=== PATIENT | male | born 1980 | race Hispanic/Latino ===

== ENCOUNTER 2018-12-27 18:36 | Emergency (ER) | payer OTHER, SELFPAY ==
[2018-12-27] MEDS ORDERED: ALBUTEROL 2.5 MG/3 ML NEB SOL ONE (19:39)
--- NOTE | 2018-12-27 19:41 | RAD REPORT ---
EXAM DESCRIPTION: Danay Keene (2 Views)12/27/2018 7:12 pm CLINICAL HISTORY: Cough COMPARISON: 2015 FINDINGS: The lungs appear clear of acute infiltrate. The heart is normal size IMPRESSION: No acute abnormalities displayed
--- NOTE | 2018-12-27 21:13 | EDPHYS ---
Physician Documentation [facility] Name: Alec Ladd Age: 38 yrs Sex: Male : 1980 Arrival Date: 12/27/2018 Time: 18:39 Bed 6 Private MD: ED Physician Jaylen Cloud HPI: 12/27 19:35 This 38 yrs old Male presents to ER via Ambulatory with complaints of Chest snw Tightness, Breathing Difficulty. 19:35 The patient or guardian reports cough, difficulty taking a deep breath. Onset: The snw symptoms/episode began/occurred 2 day(s) ago, and became persistent. Associated signs and symptoms: Pertinent positives: chest pain, with cough, tightness. Severity of symptoms: At their worst the symptoms were moderate. The patient has not experienced similar symptoms in the past. It is unknown whether or not the patient has recently seen a physician. Historical: - Allergies: 18:53 No Known Allergies; iw - Home Meds: 18:53 None [Active]; iw - PMHx: 18:53 None; iw - PSHx: 18:53 clavicle; iw - Immunization history:: Adult Immunizations not up to date. - Social history:: Smoking status: Patient/guardian denies using tobacco, the patient reports quitting approximately 3 years ago. - Ebola Screening: : Patient negative for fever greater than or equal to 101.5 degrees Fahrenheit, and additional compatible Ebola Virus Disease symptoms Patient denies exposure to infectious person Patient denies travel to an Ebola-affected area in the 21 days before illness onset No symptoms or risks identified at this time. ROS: 19:33 Constitutional: Negative for fever, chills, and weight loss, Eyes: Negative for injury, snw pain, redness, and discharge, ENT: Negative for injury, pain, and discharge, Neck: Negative for injury, pain, and swelling, Abdomen/GI: Negative for abdominal pain, nausea, vomiting, diarrhea, and constipation, Back: Negative for injury and pain, : Negative for injury, bleeding, discharge, and swelling, MS/Extremity: Negative for injury and deformity, Skin: Negative for injury, rash, and discoloration, Neuro: Negative for headache, weakness, numbness, tingling, and seizure. 19:33 Cardiovascular: Positive for chest pain, of the central chest. 19:33 Respiratory: Positive for mild cough, feels he cannot take a full breath. Exam: 18:55 ECG was reviewed by the Attending Physician. snw 19:33 Constitutional: This is a well developed, well nourished patient who is awake, alert, snw and in no acute distress. Head/Face: Normocephalic, atraumatic. Eyes: Pupils equal round and reactive to light, extra-ocular motions intact. Lids and lashes normal. Conjunctiva and sclera are non-icteric and not injected. Cornea within normal limits. Periorbital areas with no swelling, redness, or edema. ENT: Nares patent. No nasal discharge, no septal abnormalities noted. Tympanic membranes are normal and external auditory canals are clear. Oropharynx with no redness, swelling, or masses, exudates, or evidence of obstruction, uvula midline. Mucous membranes moist. Neck: Trachea midline, no thyromegaly or masses palpated, and no cervical lymphadenopathy. Supple, full range of motion without nuchal rigidity, or vertebral point tenderness. No Meningismus. Abdomen/GI: Soft, non-tender, with normal bowel sounds. No distension or tympany. No guarding or rebound. No evidence of tenderness throughout. Back: No spinal tenderness. No costovertebral tenderness. Full range of motion. Skin: Warm, dry with normal turgor. Normal color with no rashes, no lesions, and no evidence of cellulitis. MS/ Extremity: Pulses equal, no cyanosis. Neurovascular intact. Full, normal range of motion. Neuro: Awake and alert, GCS 15, oriented to person, place, time, and situation. Cranial nerves II-XII grossly intact. Motor strength 5/5 in all extremities. Sensory grossly intact. Cerebellar exam normal. Normal gait. Psych: Awake, alert, with orientation to person, place and time. Behavior, mood, and affect are within normal limits. 19:33 Chest/axilla: Inspection: normal, Palpation: is normal, Axilla: are normal. 19:33 Cardiovascular: Rate: normal, Rhythm: regular, Pulses: no pulse deficits are appreciated. 19:33 Respiratory: the patient does not display signs of respiratory distress, Respirations: normal, Breath sounds: are clear throughout. Vital Signs: 18:53 BP 152 / 67; Pulse 80; Resp 16 S; Temp 98.3(TE); Pulse Ox 100% on R/A; Weight 95.25 kg; iw Height 5 ft. 9 in. (175.26 cm); Pain 0/10; 19:29 BP 127 / 72; Pulse 75; Resp 16; Pulse Ox 100% on R/A; ak1 20:25 BP 114 / 99; Pulse 72; Resp 16; Pulse Ox 98% on R/A; ak1 18:53 Body Mass Index 31.01 (95.25 kg, 175.26 cm) iw MDM: 18:51 Patient medically screened. snw 21:13 Data reviewed: vital signs, nurses notes. Data interpreted: Pulse oximetry: on room air snw is 98 %. Interpretation: normal. Counseling: I had a detailed discussion with the patient and/or guardian regarding: the historical points, exam findings, and any diagnostic results supporting the discharge/admit diagnosis, the presence of at least one elevated blood pressure reading (>120/80) during this emergency department visit, lab results, radiology results, the need for outpatient follow up, to return to the emergency department if symptoms worsen or persist or if there are any questions or concerns that arise at home. Response to treatment: There is no appreciated change of the patient's symptoms at this time. Special discussion: Based on the patient's history, exam, and Dx evaluation, there is no indication for emergent intervention or inpatient Tx. It is understood by the patient/guardian that if the Sx's persist or worsen they need to return immediately for re-evaluation. I have referred the patient to see his PCP for further evaluation of high blood pressure. Based on the history and exam findings, there is no indication for further emergent testing or inpatient evaluation. I discussed with the patient/guardian the need to see the primary care provider for further evaluation of the symptoms. ED course: pt in ED watching tv and playing games on his phone. No distress. 12/27 20:32 Order name: Troponin (emerg Dept Use Only); Complete Time: 21:11 snw 12/27 20:32 Order name: DD; Complete Time: 20:58 snw 12/27 18:57 Order name: EKG; Complete Time: 18:58 snw 12/27 18:57 Order name: EKG - Nurse/Tech; Complete Time: 18:58 snw 12/27 18:57 Order name: Chest Pa And Lat (2 Views) XRAY; Complete Time: 19:43 snw Administered Medications: 19:28 Drug: Albuterol 2.5 mg Route: Inhalation; ak1 20:26 Follow up: Response: No adverse reaction ak1 Disposition: 12/28 07:00 Co-signature as Attending Physician, Jaylen Cloud MD. rn Disposition: 12/27/18 21:12 Discharged to Home. Impression: Chest pain, unspecified. - Condition is Stable. - Discharge Instructions: Nonspecific Chest Pain, Gastroesophageal Reflux Disease, Adult. - Prescriptions for Protonix 40 mg Oral Tablet - take 1 tablet by ORAL route once daily; 30 tablet. - Medication Reconciliation Form, Thank You Letter, Antibiotic Education, Prescription Opioid Use form. - Follow up: Private Physician; When: 2 - 3 days; Reason: Recheck today's complaints, Continuance of care, Re-evaluation by your physician. Follow up: Emergency Department; When: As needed; Reason: Worsening of condition. Signatures: Dispatcher [employer] EDMS Marly Warner, LOFTSMAN-C LOFTSMAN-Csnw Dana Montilla RN RN iw Nieto, Roman, MD MD rn Krenek, Amber, RN RN ak1 Corrections: (The following items were deleted from the chart) 12/27 21:18 21:12 12/27/2018 21:12 Discharged to Home. Impression: Chest pain, unspecified. ak1 Condition is Stable. Forms are Medication Reconciliation Form, Thank You Letter, Antibiotic Education, Prescription Opioid Use. Follow up: Private Physician; When: 2 - 3 days; Reason: Recheck today's complaints, Continuance of care, Re-evaluation by your physician. Follow up: Emergency Department; When: As needed; Reason: Worsening of condition. snw
--- NOTE | 2018-12-27 21:13 | ER ---
Nurse's Notes [facility] Name: Alec Ladd Age: 38 yrs Sex: Male : 1980 Arrival Date: 12/27/2018 Time: 18:39 Bed 6 Private MD: Diagnosis: Chest pain, unspecified Presentation: 12/27 18:50 Presenting complaint: Patient states: midsternal chest pain described as tightness iw since yesterday evening, radiates into throat at times, also feels like he "can't get a goof breath". Transition of care: patient was not received from another setting of care. Onset of symptoms was December 26, 2018. Risk Assessment: Do you want to hurt yourself or someone else? Patient reports no desire to harm self or others. Initial Sepsis Screen: Does the patient meet any 2 criteria? No. Patient's initial sepsis screen is negative. Does the patient have a suspected source of infection? No. Patient's initial sepsis screen is negative. Care prior to arrival: None. 18:50 Method Of Arrival: Ambulatory iw 18:50 Acuity: VIVIANE 3 iw Historical: - Allergies: 18:53 No Known Allergies; iw - Home Meds: 18:53 None [Active]; iw - PMHx: 18:53 None; iw - PSHx: 18:53 clavicle; iw - Immunization history:: Adult Immunizations not up to date. - Social history:: Smoking status: Patient/guardian denies using tobacco, the patient reports quitting approximately 3 years ago. - Ebola Screening: : Patient negative for fever greater than or equal to 101.5 degrees Fahrenheit, and additional compatible Ebola Virus Disease symptoms Patient denies exposure to infectious person Patient denies travel to an Ebola-affected area in the 21 days before illness onset No symptoms or risks identified at this time. Screenin:07 Abuse screen: Denies threats or abuse. Denies injuries from another. Nutritional ak1 screening: No deficits noted. Tuberculosis screening: No symptoms or risk factors identified. Fall Risk None identified. Assessment: 19:07 General: Appears in no apparent distress. Behavior is calm, cooperative. Pain: ak1 Complains of pain in anterior aspect of left upper chest and left breast Pain does not radiate. Pain began 1 day ago. Neuro: No deficits noted. Cardiovascular: Heart tones S1 S2 present Capillary refill < 3 seconds Patient's skin is warm and dry. Respiratory: Airway is patent Breath sounds are clear bilaterally. GI: No signs and/or symptoms were reported involving the gastrointestinal system. : No signs and/or symptoms were reported regarding the genitourinary system. EENT: No signs and/or symptoms were reported regarding the EENT system. Derm: No signs and/or symptoms reported regarding the dermatologic system. Musculoskeletal: Range of motion: intact in all extremities, Reports left chest wall pain. Vital Signs: 18:53 BP 152 / 67; Pulse 80; Resp 16 S; Temp 98.3(TE); Pulse Ox 100% on R/A; Weight 95.25 kg; iw Height 5 ft. 9 in. (175.26 cm); Pain 0/10; 19:29 BP 127 / 72; Pulse 75; Resp 16; Pulse Ox 100% on R/A; ak1 20:25 BP 114 / 99; Pulse 72; Resp 16; Pulse Ox 98% on R/A; ak1 18:53 Body Mass Index 31.01 (95.25 kg, 175.26 cm) iw ED Course: 18:39 Patient arrived in ED. rg4 18:44 Marly Warner [facility]-C [facility]. snw 18:44 Jaylen Cloud MD is Attending Physician. snw 18:52 Triage completed. iw 18:53 Arm band placed on. iw 18:56 Everett Shankar, RN is Primary Nurse. bp 18:59 Primary Nurse role handed off by Everett Shankar, RN bp 19:07 Laurence Quinn, RN is Primary Nurse. ak1 19:07 Patient has correct armband on for positive identification. Placed in gown. Bed in low ak1 position. Call light in reach. Side rails up X 1. Pulse ox on. NIBP on. pt given the call light and TV remote, pt playing games on his phone.. 19:10 Chest Pa And Lat (2 Views) XRAY In Process Unspecified. EDMS 19:13 Patient maintains SpO2 saturation greater than 95% on room air. ak1 20:25 No provider procedures requiring assistance completed. ak1 20:48 Inserted Butterfly 21G right AC blood drawn only and sent to the lab. ag4 21:14 Patient did not have IV access during this emergency room visit. ak1 Administered Medications: 19:28 Drug: Albuterol 2.5 mg Route: Inhalation; ak1 20:26 Follow up: Response: No adverse reaction ak1 Outcome: 21:12 Discharge ordered by . santiago 21:14 Condition: stable ak1 21:18 Discharged to home ambulatory. ak1 21:18 Discharge instructions given to patient, Instructed on discharge instructions, follow up and referral plans. no drinking with medication, no driving heavy equipment, medication usage, Demonstrated understanding of instructions, follow-up care, medications, Prescriptions given X 1. 21:18 Patient left the ED. ak1 Signatures: Dispatcher [employer] EDMS Marly Warner, LOOM CHECKER-C LOOM CHECKER-Csnw Dana Montilla RN Laurence Humphrey RN RN Halley Pascual rg4 Everett Shankar RN RN Vik Lawton ag4
[2018-12-27 21:24] VITALS: TEMP 98.3
[2018-12-27 21:26] VITALS: BP 114/99; O2SAT 98
--- NOTE | 2018-12-28 07:49 | EKG ---
Test Date: 2018-12-27 Test Time: 18:51:59 Batch Freezer: KEL MEASUREMENT RESULTS: Intervals: Rate: 80 CT: 164 QRSD: 88 QT: 372 QTc: 429 Gratz: P: 39 CT: 164 QRS: 38 T: 39 INTERPRETIVE STATEMENTS: Normal sinus rhythm with sinus arrhythmia Normal ECG No previous ECG available for comparison Electronically Signed On 12-28-18 07:46:47 CDT by Clarence Dye
== END 2018-12-27 21:18 | disposition home or self-care (01) ==
LOC: ER 18:36
DX: R07.9 Chest pain, unspecified (principal); R05 Cough; Z87.891 Personal history of nicotine dependence
CPT/HCPCS: 36415; 71046; 84484; 85379; 93005; 99284

== ENCOUNTER 2019-03-13 06:22 | Emergency (ER) | payer SELFPAY ==
--- NOTE | 2019-03-13 07:24 | ER ---
Nurse's Notes [facility] Name: Alec Ladd Age: 38 yrs Sex: Male : 1980 Arrival Date: 03/13/2019 Time: 06:29 Bed 13 Private MD: Diagnosis: Acute pharyngitis;Otitis media, unspecified, right ear Presentation: 03/13 06:33 Method Of Arrival: Ambulatory cr4 06:33 Presenting complaint: Patient states: Patient stated waking up and noting that he had cr4 difficulty swallowing and passing saliva. Denies having fever or chills, N/V. Transition of care: patient was not received from another setting of care. Onset of symptoms was March 13, 2019. Risk Assessment: Do you want to hurt yourself or someone else? Patient reports no desire to harm self or others. Initial Sepsis Screen: Does the patient meet any 2 criteria? No. Patient's initial sepsis screen is negative. Does the patient have a suspected source of infection? No. Patient's initial sepsis screen is negative. Care prior to arrival: None. 06:33 Acuity: VIVIANE 4 cr4 Triage Assessment: 07:03 General: Appears uncomfortable, well groomed, Behavior is calm, cooperative, cr4 appropriate for age. Pain: Complains of pain in throat and right ear. EENT: Throat is reddened bilaterally Reports difficulty swallowing. Neuro: Level of Consciousness is awake, alert, obeys commands. Cardiovascular: Denies chest pain, Heart tones S1 S2 Pulses are all present. Respiratory: No deficits noted. Airway is patent Trachea midline Respiratory effort is even, unlabored, Respiratory pattern is regular, Breath sounds are clear bilaterally. GI: Patient currently denies abdominal pain, nausea, vomiting. : Denies burning with urination. Derm: No deficits noted. Musculoskeletal: No deficits noted. Historical: - Allergies: 07:02 No Known Allergies; cr4 - Immunization history:: Adult Immunizations unknown. - Social history:: Smoking status: Patient/guardian denies using tobacco. - Ebola Screening: : No symptoms or risks identified at this time. Screenin:18 Abuse screen: Denies threats or abuse. Nutritional screening: No deficits noted. cr4 Tuberculosis screening: No symptoms or risk factors identified. Fall Risk None identified. Assessment: 06:34 General: Appears uncomfortable, well groomed, Behavior is calm, cooperative, cr4 appropriate for age. Pain: Complains of pain in throat Alleviated by eating, swallowing. Neuro: Level of Consciousness is awake, alert, obeys commands, Oriented to Appropriate for age. Cardiovascular: No deficits noted. Respiratory: No deficits noted. Airway is patent Respiratory effort is even, unlabored, Respiratory pattern is regular. GI: No deficits noted. Patient currently denies nausea, pain, vomiting. : No deficits noted. Denies burning with urination. EENT: Throat is reddened bilaterally. Derm: No deficits noted. Musculoskeletal: No deficits noted. Vital Signs: 06:36 BP 151 / 83; Pulse 92; Resp 18; Temp 98.2; Pulse Ox 97% ; Pain 4/10; cr4 ED Course: 06:29 Patient arrived in ED. ds1 06:50 Semaj Mercado [facility]. pm1 06:50 Timothy Dumont MD is Attending Physician. pm1 06:54 Triage completed. cr4 06:55 Bed in low position. Call light in reach. Side rails up X 1. Pulse ox on. NIBP on. ae4 06:55 Arm band placed on right wrist. ae4 07:14 Danny Nguyen, RN is Primary Nurse. ae4 07:46 No provider procedures requiring assistance completed. Patient did not have IV access ae4 during this emergency room visit. Administered Medications: 07:25 Drug: Decadron 10 mg {Note: Administered PO..} Route: IM; Site: Other; cr4 07:46 Follow up: Response: Medication administered at discharge. ae4 Outcome: 07:23 Discharge ordered by . pm1 07:46 Discharged to home ambulatory. ae4 07:46 Condition: stable 07:46 Discharge instructions given to patient, Instructed on discharge instructions, Demonstrated understanding of instructions, Prescriptions given X 1. 07:46 Patient left the ED. ae4 Signatures: aV Thao ds1 Rosario Wei RN RN cr4 Semaj Mercado NP ENTERPRISE RESOURCE ANALYST pm1 Danny Nguyen, SAGE RN ae4
--- NOTE | 2019-03-13 07:24 | EDPHYS ---
Physician Documentation [facility] Name: Alec Ladd Age: 38 yrs Sex: Male : 1980 Arrival Date: 03/13/2019 Time: 06:29 Bed 13 Private MD: ED Physician Timothy Dumont HPI: 03/13 07:22 This 38 yrs old Male presents to ER via Ambulatory with complaints of Sore pm1 Throat. 07:22 The patient presents with sore throat. The patient describes throat pain as constant, pm1 raw, scratchy. Onset: The symptoms/episode began/occurred this morning. Severity of symptoms: in the emergency department the symptoms are unchanged. Modifying factors: The symptoms are alleviated by nothing, the symptoms are aggravated by swallowing, Patient's oral intake status: good unaware of sick contact. Associated signs and symptoms: Pertinent positives: earache, Sore throat Pertinent negatives cough, fever, flu-like symptoms, headache. The patient has not experienced similar symptoms in the past. The patient has not recently seen a physician. Historical: - Allergies: 07:02 No Known Allergies; cr4 - Immunization history:: Adult Immunizations unknown. - Social history:: Smoking status: Patient/guardian denies using tobacco. - Ebola Screening: : No symptoms or risks identified at this time. ROS: 07:22 Constitutional: Negative for fever, chills, and weight loss, Eyes: Negative for injury, pm1 pain, redness, and discharge. 07:22 Neck: Negative for injury, pain, and swelling, Cardiovascular: Negative for chest pain, palpitations, and edema, Respiratory: Negative for shortness of breath, cough, wheezing, and pleuritic chest pain, Abdomen/GI: Negative for abdominal pain, nausea, vomiting, diarrhea, and constipation, Back: Negative for injury and pain, MS/Extremity: Negative for injury and deformity, Skin: Negative for injury, rash, and discoloration, Neuro: Negative for headache, weakness, numbness, tingling, and seizure. 07:22 ENT: Positive for ear pain, sore throat, Negative for drainage from ear(s), rhinorrhea, dental pain, difficulty swallowing, difficulty handling secretions, hoarseness. Exam: 07:22 Constitutional: This is a well developed, well nourished patient who is awake, alert, pm1 and in no acute distress. Head/Face: Normocephalic, atraumatic. Eyes: Pupils equal round and reactive to light, extra-ocular motions intact. Lids and lashes normal. Conjunctiva and sclera are non-icteric and not injected. Cornea within normal limits. Periorbital areas with no swelling, redness, or edema. 07:22 Neck: Trachea midline, no thyromegaly or masses palpated, and no cervical lymphadenopathy. Supple, full range of motion without nuchal rigidity, or vertebral point tenderness. No Meningismus. Chest/axilla: Normal chest wall appearance and motion. Nontender with no deformity. No lesions are appreciated. Cardiovascular: Regular rate and rhythm with a normal S1 and S2. No gallops, murmurs, or rubs. Normal PMI, no JVD. No pulse deficits. Respiratory: Lungs have equal breath sounds bilaterally, clear to auscultation and percussion. No rales, rhonchi or wheezes noted. No increased work of breathing, no retractions or nasal flaring. Back: No spinal tenderness. No costovertebral tenderness. Full range of motion. Skin: Warm, dry with normal turgor. Normal color with no rashes, no lesions, and no evidence of cellulitis. MS/ Extremity: Pulses equal, no cyanosis. Neurovascular intact. Full, normal range of motion. 07:22 ENT: External ear(s): are unremarkable, Ear canal(s): are normal, TM's: bulging, on the right, erythema, that is mild, on the right, Examination of the other ear shows no obvious abnormality, Nose: is normal, Mouth: is normal, Posterior pharynx: Airway: no evidence of obstruction, Tonsils: bilaterally enlarged, with erythema, no exudate, no ulcerations, peritonsillar mass, is not appreciated, pooling of secretions, is not appreciated. 07:22 Neuro: Orientation: is normal, Motor: is normal, moves all fours, Sensation: is normal, no obvious gross deficits, Gait: is steady, at a normal pace, without difficulty. Vital Signs: 06:36 BP 151 / 83; Pulse 92; Resp 18; Temp 98.2; Pulse Ox 97% ; Pain 4/10; cr4 MDM: 06:50 Patient medically screened. pm1 07:11 Data reviewed: vital signs. Data interpreted: Pulse oximetry: on room air is 97 %. pm1 Interpretation: normal. 07:22 Counseling: I had a detailed discussion with the patient and/or guardian regarding: the pm1 historical points, exam findings, and any diagnostic results supporting the discharge/admit diagnosis, lab results, the need for outpatient follow up, to return to the emergency department if symptoms worsen or persist or if there are any questions or concerns that arise at home. 03/13 06:41 Order name: Strep; Complete Time: 07:22 tl2 03/13 07:22 Order name: Throat Culture EDMS Administered Medications: 07:25 Drug: Decadron 10 mg {Note: Administered PO..} Route: IM; Site: Other; cr4 07:46 Follow up: Response: Medication administered at discharge. ae4 Disposition: 21:23 Co-signature as Attending Physician, Timothy Dumont MD. Disposition: 03/13/19 07:23 Discharged to Home. Impression: Acute pharyngitis, Otitis media, unspecified, right ear. - Condition is Stable. - Discharge Instructions: Otitis Media, Adult, Pharyngitis. - Prescriptions for Zithromax Z- Per 250 mg Oral Tablet - take 1 tablet by ORAL route as directed for 5 days Day 1 - take two (2) tablets one time. Day 2, 3, 4 , 5 take one (1) tablet once daily.; 6 tablet. - Medication Reconciliation Form, Thank You Letter, Antibiotic Education, Prescription Opioid Use form. - Follow up: Emergency Department; When: As needed; Reason: Worsening of condition. Follow up: Private Physician; When: 2 - 3 days; Reason: Recheck today's complaints, Continuance of care, Re-evaluation by your physician. - Problem is new. - Symptoms have improved. Signatures: Dispatcher [employer] EDOR Rosario Wei RN RN cr4 Semaj Mercado, MY[employer] SECURITY PROFESSIONAL pm1 Timothy Dumont MD MD Danny Nguyen RN RN ae4 Corrections: (The following items were deleted from the chart) 07:46 07:23 03/13/2019 07:23 Discharged to Home. Impression: Acute pharyngitis; Otitis media, ae4 unspecified, right ear. Condition is Stable. Forms are Medication Reconciliation Form, Thank You Letter, Antibiotic Education, Prescription Opioid Use. Follow up: Emergency Department; When: As needed; Reason: Worsening of condition. Follow up: Private Physician; When: 2 - 3 days; Reason: Recheck today's complaints, Continuance of care, Re-evaluation by your physician. Problem is new. Symptoms have improved. pm1
[2019-03-13] MEDS ORDERED: dexAMETHasone 10 MG/ML VIAL ONE (07:33)
[2019-03-13 07:51] VITALS: BP 151/83; TEMP 98.2; O2SAT 97
== END 2019-03-13 07:46 | disposition home or self-care (01) ==
LOC: ER 06:22
DX: J02.9 Acute pharyngitis, unspecified (principal); H66.91 Otitis media, unspecified, right ear
CPT/HCPCS: 87070; 87081; 96372; 99283; J1100